=== PATIENT | male | born 1970 | race Caucasian/White ===

== ENCOUNTER 2017-10-22 12:30 | Day surgery (SDC) | payer OTHER, BC ==
[~2017-10-22] VITALS: Ht 218.4 cm; Wt 102.1 kg
[~2017-10-22 12:30] MED LIST: AZIT250 PO; CEPH500 PO; CLOT1TL TOP; DESO.05TCA TP; FLUC150A PO; FLUO.05TC TOP; FLUOCINONIDE; OXYACE5T PO; PSEU120ER PO
[2017-10-22] MEDS ORDERED: LISI5 PO (13:08)
== END 2017-10-22 16:47 | disposition home or self-care (01) ==
LOC: ORSCSDS 12:30
PROVIDERS: Orthopaedic Surgery
PROC: 0SQD4ZZ Repair Left Knee Joint, Percutaneous Endoscopic Approach (ICD-10-PCS; principal; 2017-10-22 13:25)
DX: M94.262 Chondromalacia, left knee (principal); S83.242A Other tear of medial meniscus, current injury, left knee, initial encounter; I10 Essential (primary) hypertension; Z79.899 Other long term (current) drug therapy
CPT/HCPCS: C1713; J0171; J0690; J1100; J1885; J2250; J2405; J2795; J3010; J7120

== ENCOUNTER 2021-03-20 04:42 | Emergency (ER) | payer BC ==
[~2021-03-20] VITALS: Ht 185.4 cm; Wt 99.8 kg
[~2021-03-20 04:42] MED LIST changes: +LISI5 PO
[2021-03-20] MEDS ORDERED: Pepcid20 MG PO (07:45)
== END 2021-03-20 08:02 | disposition home or self-care (01) ==
LOC: ER 04:42
DX: R21 Rash and other nonspecific skin eruption (principal); R05.9 Cough, unspecified; R60.0 Localized edema
CPT/HCPCS: 71045; 96372; 99283-25; J3301

== ENCOUNTER 2025-03-19 09:26 | Day surgery (SDC) | payer BC ==
[~2025-03-19] VITALS: Ht 185.4 cm; Wt 91.7 kg
[~2025-03-19 09:26] MED LIST changes: +Pepcid20 MG PO
[2025-03-19] MEDS ORDERED: IBUP200 (09:42)
[2025-03-19] MEDS ORDERED: ACET325 (09:42)
[2025-03-19 12:34] VITALS: BP 132/98
== END 2025-03-19 12:32 | disposition home or self-care (01) ==
LOC: ORSCSDS 09:26
PROVIDERS: Internal Medicine Gastroenterology
PROC: 0DBN8ZX Excision of Sigmoid Colon, Via Natural or Artificial Opening Endoscopic, Diagnostic (ICD-10-PCS; principal; 2025-03-19 11:00)
PROC: 0DBM8ZX Excision of Descending Colon, Via Natural or Artificial Opening Endoscopic, Diagnostic (ICD-10-PCS; principal; 2025-03-19 11:00)
PROC: 0DBL8ZX Excision of Transverse Colon, Via Natural or Artificial Opening Endoscopic, Diagnostic (ICD-10-PCS; principal; 2025-03-19 11:00)
DX: Z12.11 Encounter for screening for malignant neoplasm of colon (principal); R19.5 Other fecal abnormalities; D12.4 Benign neoplasm of descending colon; D12.3 Benign neoplasm of transverse colon; D12.5 Benign neoplasm of sigmoid colon
CPT/HCPCS: 88305; J2704; J7120